=== PATIENT | male | born 1940 | race Caucasian/White ===

== ENCOUNTER 2022-11-05 10:16 | Observation (INO) | payer BC, MEDICARE ==
[2022-11-05] MEDS ORDERED: SODIUM CHLORIDE 0.9% 1,000 ML IV STA (11:22)
[2022-11-05 11:50] LABS: Basophils # (A) 0.1 k/uL (0-0.2); Basophils % (A) 1 %; Eosinophils % (A) 0 %; HGB 15.1 gm/dL (13.0-17.5); Lymphocytes # (A) 0.9 k/uL (1.0-4.8); Lymphocytes % (A) 8 %; MCH 32.8 pg (25.0-35.0); MCHC 33.4 g/dL (31.0-37.0); MCV 98.1 fL (80.0-100.0); Mean Platelet Volume 8.9; Monocytes # (A) 0.7 k/uL (0-1.0); Monocytes % (A) 6 %; Neutrophils # (A) 9.7 k/uL (1.3-7.7); Neutrophils % (A) 83 %; Platelet Count 160 k/uL (150-450); RBC 4.59 m/uL (4.30-5.90); RDW 14.5 % (11.5-15.5); WBC 11.7 k/uL (3.8-10.6)
--- NOTE | 2022-11-05 12:02 | XR ---
EXAMINATION TYPE: XR shoulder complete LT DATE OF EXAM: 11/05/2022 CLINICAL HISTORY: pain COMPARISON: NONE TECHNIQUE: Three views of the left shoulder are obtained. FINDINGS: Partially impacted partially displaced fracture left humeral surgical neck. Glenohumeral eric int is intact as is the AC joint. Mild AC joint arthropathy. IMPRESSION: 1. Fracture as described left humeral surgical neck.
[2022-11-05 12:12] LABS: ALT 18 U/L (4-49); AST 21 U/L (17-59); African American GFR (CKD) >90 (>60 ml/min/1.73 sqM); Albumin 4.3 g/dL (3.5-5.0); Alkaline Phosphatase 65 U/L (38-126); Anion Gap 6 mmol/L; Blood Urea Nitrogen 17 mg/dL (9-20); Calcium 11.2 mg/dL (8.4-10.2); Carbon Dioxide 25 mmol/L (22-30); Chloride 105 mmol/L (98-107); Glucose 104 mg/dL (74-99); Magnesium 1.6 mg/dL (1.6-2.3); Non-African American GFR(CKD) 83 (>60 ml/min/1.73 sqM); Phosphorus 2.2 mg/dL (2.5-4.5); Potassium 4.7 mmol/L (3.5-5.1); Sodium 136 mmol/L (137-145); Total Bilirubin 2.9 mg/dL (0.2-1.3); Total Protein 6.9 g/dL (6.3-8.2)
--- NOTE | 2022-11-05 12:12 | XR ---
EXAMINATION TYPE: XR chest 1V DATE OF EXAM: 11/05/2022 COMPARISON: None INDICATION: Fall, pain TECHNIQUE: Single frontal view of the chest is obtained. FINDINGS: The heart size is normal. The pulmonary vasculature is normal. The lungs are clear. No pneumothorax is evident. There is a fracture at the surgical neck of the left humerus. IMPRESSION: 1. No acute pulmonary process. 2. Fracture of the left humeral neck.
--- NOTE | 2022-11-05 12:27 | ED ---
Fall HPI - General Chief Complaint: Fall Stated Complaint: fall, lt arm pain Time Seen by Provider: 11/05/22 11:14 Source: patient, EMS, old records reviewed Mode of arrival: EMS Limitations: no limitations - History of Present Illness Initial Comments: This is a 82-year-old male presents emergency from chief complaint of a fall. Patient states that he loss his balance falling yesterday. Patient states he fell last night and crawled to the couch. Patient is still complaining of shoulder pain which family called EMS. Family states the patient does not really got to his primary care physician is concerned about his overall health. Patient himself has no other specific complaints. Family states that is very weak, states that he cannot get up and walk by himself. He denies any head injury no loss conscious. Denies chest pain no palpitations. - Related Data Home Medications Medication Instructions Recorded Confirmed No Known Home Medications 11/05/22 11/05/22 Allergies Allergy/AdvReac Type Severity Reaction Status Date / Time No Known Allergies Allergy Verified 11/05/22 13:22 Review of Systems ROS Statement: Those systems with pertinent positive or pertinent negative responses have been documented in the HPI. ROS Other: All systems not noted in ROS Statement are negative. Past Medical History Past Medical History: Dementia History of Any Multi-Drug Resistant Organisms: None Reported Past Surgical History: No Surgical Hx Reported Past Psychological History: No Psychological Hx Reported Smoking Status: Current every day smoker Past Alcohol Use History: Occasional Past Drug Use History: None Reported General Exam Limitations: no limitations General appearance: alert, in no apparent distress Head exam: Present: atraumatic, normocephalic, normal inspection Eye exam: Present: normal appearance, PERRL, EOMI. Absent: scleral icterus, conjunctival injection, periorbital swelling ENT exam: Present: normal exam, normal oropharynx, mucous membranes moist Neck exam: Present: normal inspection, full ROM. Absent: tenderness, menin gismus, lymphadenopathy Respiratory exam: Present: normal lung sounds bilaterally. Absent: respiratory distress, wheezes, rales, rhonchi, stridor Cardiovascular Exam: Present: regular rate, normal rhythm, normal heart sounds. Absent: systolic murmur, diastolic murmur, rubs, gallop, clicks Extremities exam: Present: other (Left shoulder there is obvious deformity, swelling noted, tenderness with limited range of motion neurovascular intact) Neurological exam: Present: alert, oriented X3, reflexes normal. Absent: motor sensory deficit Skin exam: Present: warm, dry, intact, normal color. Absent: rash Course Vital Signs 11/05/22 11/05/22 10:17 12:36 Temperature 98.4 F Pulse Rate 81 Pulse Rate [ 64 Aircraft Sales Representative ] Respiratory 18 18 Rate Blood Pressure 173/94 Blood Pressure 183/92 [Right Arm Supine] O2 Sat by Pulse 93 L 95 Oximetry Medical Decision Making - Medical Decision Making Was pt. sent in by a medical professional or institution (MATT Conway, [facility]LE [facility], urgent care, hospital, or [facility]...) When possible be specific @ -No Did you speak to anyone other than the patient for history (EMS, parent, family, police, friend...)? What history was obtained from this source @ -EMS and family Did you review nursing and triage notes (agree or disagree)? Why? @ -I reviewed and agree with nursing and triage notes Were old charts reviewed (outside hosp., previous admission, EMS record, old EKG, old radiological studies, urgent care reports/EKG's, [facility] records)? Report findings @ -No old charts were reviewed Differential Diagnosis (chest pain, altered mental status, abdominal pain women, abdominal pain men, vaginal bleeding, weakness, fever, dyspnea, syncope, headache, dizziness, GI bleed, back pain, seizure, CVA, palpatations, mental health, musculoskeletal)? @ -Fall, weakness, dehydration, malnutrition, humeral fracture, EKG interpreted by me (3pts min.). @ -EKG performed at 11:34 sinus bradycardia with a rate of 59 [place] 192 QRS 85 QT/QTC 377/377 X-rays interpreted by me (1pt min.). @ -None done CT interpreted by me (1pt min.). @ -None done U/S interpreted by me (1pt. min.). @ -None done What testing was considered but not performed or refused? (CT, X-rays, U/S, labs)? Why? @ -None What meds were considered but not given or refused? Why? @ -None Did you discuss the management of the patient with other professionals (professionals i.e. MATT Conway, BOTTLE WASHER, lab, RT, psych nurse, social human services assistants, manufacturing controls engineer, teacher, chief supply chain officer, keycase assembler)? Give summary @ -Orthopedics accepted admission for trauma care, consult to medicine, physical therapy and possible rehab Was smoking cessation discussed for >3mins.? @ -No Was critical care preformed (if so, how long)? @ -No Were there social determinants of health that impacted care today? How? (Homelessness, low income, unemployed, alcoholism, drug addiction, transportation, low edu. Level, literacy, decrease access to med. care, prison, rehab)? @ -No Was there de-escalation of care discussed even if they declined (Discuss DNR or withdrawal of care, Hospice)? DNR status @ -No What co-morbidities impacted this encounter? (DM, HTN, Smoking, COPD, CAD, Cancer, CVA, ARF, Chemo, Hep., AIDS, mental health diagnosis, sleep apnea, morbid obesity)? @ -None Was patient admitted / discharged? Hospital course, mention meds given and route, prescriptions, significant lab abnormalities, going to OR and other pertinent info. @ -Admitted patient has left humerus fracture with ongoing weakness, malnutrition. Patient was admitted to trauma services Dr. Stapleton with consult to medicine Undiagnosed new problem with uncertain prognosis? @ -No Drug Therapy requiring intensive monitoring for toxicity (Heparin, Nitro, Insulin, Cardizem)? @ -No Were any procedures done? @ -No Diagnosis/symptom? @ - humerus fracture Acute, or Chronic, or Acute on Chronic? @ -Acute Uncomplicated (without systemic symptoms) or Complicated (systemic symptoms)? @ -Uncomplicated Side effects of treatment? @ -No Exacerbation, Progression, or Severe Exacerbation? @ -No Poses a threat to life or bodily function? How? (Chest pain, USA, NC, pneumonia, PE, COPD, DKA, ARF, appy, cholecystitis, CVA, Diverticulitis, Homicidal, Suicidal, threat to staff... and all critical care pts) @ -No - Lab Data Result diagrams: 11/05/22 11:34 11/05/22 11:34 Lab Results 11/05/22 11/05/22 11/05/22 Range/Units 11:34 11:34 13:00 WBC 11.7 H (3.8-10.6) k/uL RBC 4.59 (4.30-5.90) m/uL Hgb 15.1 (13.0-17.5) gm/dL Hct 45.0 (39.0-53.0) % MCV 98.1 (80.0-100.0) fL MCH 32.8 (25.0-35.0) pg MCHC 33.4 (31.0-37.0) g/dL RDW 14.5 (11.5-15.5) % Plt Count 160 (150-450) k/uL MPV 8.9 Neutrophils % 83 % Lymphocytes % 8 % Monocytes % 6 % Eosinophils % 0 % Basophils % 1 % Neutrophils # 9.7 H (1.3-7.7) k/uL Lymphocytes # 0.9 L (1.0-4.8) k/uL Monocytes # 0.7 (0-1.0) k/uL Eosinophils # 0.0 (0-0.7) k/uL Basophils # 0.1 (0-0.2) k/uL Sodium 136 L (137-145) mmol/L Potassium 4.7 (3.5-5.1) mmol/L Chloride 105 (98-107) mmol/L Carbon Dioxide 25 (22-30) mmol/L Anion Gap 6 mmol/L BUN 17 (9-20) mg/dL Creatinine 0.81 (0.66-1.25) mg/dL Est GFR (CKD-EPI)AfAm >90 (>60 ml/min/1.73 sqM) Est GFR (CKD-EPI)NonAf 83 (>60 ml/min/1.73 sqM) Glucose 104 H (74-99) mg/dL Calcium 11.2 H (8.4-10.2) mg/dL Phosphorus 2.2 L (2.5-4.5) mg/dL Magnesium 1.6 (1.6-2.3) mg/dL Total Bilirubin 2.9 H (0.2-1.3) mg/dL AST 21 (17-59) U/L ALT 18 (4-49) U/L Alkaline Phosphatase 65 (38-126) U/L Total Protein 6.9 (6.3-8.2) g/dL Albumin 4.3 (3.5-5.0) g/dL Urine Color Yellow Urine Appearance Cloudy (Clear) Urine pH 8.0 (5.0-8.0) Ur Specific [place] 1.014 (1.001-1.035) Urine Protein Negative (Negative) Urine Glucose (UA) Negative (Negative) Urine Ketones Negative (Negative) Urine Blood Negative (Negative) Urine Nitrite Negative (Negative) Urine Bilirubin Negative (Negative) Urine Urobilinogen 2.0 (<2.0) mg/dL Ur Leukocyte Esterase Negative (Negative) Urine RBC 2 (0-5) /hpf Amorphous Sediment Moderate H (None) /hpf - EKG Data -: EKG Interpreted by Me EKG Comments: EKG performed at 11:34 sinus bradycardia rate of 59 [place] 192 QRS 85 QT/QTC 377/377 Disposition Clinical Impression: Fall, Weakness, Unable to ambulate, Fracture of neck of left humerus Disposition: ADMITTED IP TO THIS HOSP Condition: Fair Referrals: Odell Zee MD [Primary Care Provider] - 1-2 days Time of Disposition: 14:08
[2022-11-05 13:31] LABS: Amorphous Sediment,Urine Moderate /hpf; Appearance,Urine Cloudy (Clear); Bilirubin,Urine Negative (Negative); Blood,Urine Negative (Negative); Color,Urine Yellow; Glucose,Urine (UA) Negative (Negative); Ketones,Urine Negative (Negative); Leukocyte Esterase,Urine Negative (Negative); Nitrite,Urine Negative (Negative); Protein,Urine Negative (Negative); RBC,Urine 2 /hpf (0-5); Specific Gravity,Urine 1.014 (1.001-1.035)
[2022-11-05] MEDS ORDERED: ONDANSETRON 4 MG/2 ML VIAL IVP PRN (14:08)
[2022-11-05] MEDS ORDERED: ACETAMINOPHEN TAB 325 MG TAB PO PRN (14:08)
[2022-11-05] MEDS ORDERED: NALOXONE 0.4 MG/ML 1 ML VIAL IV PRN (14:08)
[2022-11-05] MEDS ORDERED: IBUPROFEN 400 MG TAB PO PRN (14:08)
[2022-11-05] MEDS ORDERED: SENNOSIDES 8.6 MG TAB PO PRN (15:11)
--- NOTE | 2022-11-05 15:11 | P.HPOR ---
History of Present Illness H&P Date: 11/05/22 Chief Complaint: left shoulder pain patient is an 82-year-old male who presents to the emergency department status post fall at home. Patient states he fell last night, however, friends/family that was present during her says he fell about 2 days ago when he is at home. Patient states he was locking a door when he fell to the ground landing on his left shoulder. patient denies feeling dizzy/tripping over anything before the fall. Patient denies loss of consciousness/hitting his head. patient says he does have a cane at home, but does not use it to ambulate. Patient's family member says that patient is very weak. Patient states she has had both hip replaced in the past. Patient denies any other orthopedic surgeries. Patient states mostly the pain is in the left shoulder and there is some radiation of pain down the left elbow. Patient denies any numbness/tingling. Swelling is present to the left upper extremity with ice over the elbow. Patient says he is not on any blood thinners. Patient denies chest pain, fever, shortness of breath, nausea, vomiting, change in vision, loss of bowel/bladder control Past Medical History Past Medical History: Dementia History of Any Multi-Drug Resistant Organisms: None Reported Past Surgical History: No Surgical Hx Reported Past Psychological History: No Psychological Hx Reported Smoking Status: Current every day smoker Past Alcohol Use History: Occasional Past Drug Use History: None Reported Medications and Allergies Home Medications Medication Instructions Recorded Confirmed Type No Known Home Medications 11/05/22 11/05/22 History Allergies Allergy/AdvReac Type Severity Reaction Status Date / Time No Known Allergies Allergy Verified 11/05/22 13:22 Physical Examination inspection: Sling present to left upper extremity. Ecchymosis present in the left upper extremity from proximal humerus extending distally to the elbow. Negative for any open fractures, significant ulcers/lesions. Sensation: Sensation is equal, symmetric, by intact throughout the upper and lower extremities Palpation: severe TTP over proximal left humerus. moderate TTP over mid shaft humerus. NTTP throughout rest of exam. range of motion: Patient is unable to move left shoulder secondary to injury/pain. Patient does have similar range of motion left elbow secondary to referred pain from the shoulder. Patient has full range of motion in left wrist and flexion/extension and digits of left hand. Patient has full range of motion throughout right upper extremity and in bilateral lower extremities Motor: 4+/5 in all major motor some bilateral lower extremities and right upper extremity. 4+/5 in resisted left wrist flexion/extension. 4/5 in reisted left elbow flex/ext. Neurovascular status: Radial pulses intact, 2+ bilaterally. Cap refill under 3 seconds in digits of upper extremities. DP pulse intact bilaterally. Special tests: Negative Homans. Negative log roll maneuver bilaterally. Results - Labs Labs: Abnormal Lab Results - Last 24 Hours (Table) 11/05/22 11/05/22 11/05/22 Range/Units 11:34 11:34 13:00 WBC 11.7 H (3.8-10.6) k/uL Neutrophils # 9.7 H (1.3-7.7) k/uL Lymphocytes # 0.9 L (1.0-4.8) k/uL Sodium 136 L (137-145) mmol/L Glucose 104 H (74-99) mg/dL Calcium 11.2 H (8.4-10.2) mg/dL Phosphorus 2.2 L (2.5-4.5) mg/dL Total Bilirubin 2.9 H (0.2-1.3) mg/dL Amorphous Sediment Moderate H (None) /hpf H & H 11/05/22 Range/Units 11:34 Hgb 15.1 (13.0-17.5) gm/dL Hct 45.0 (39.0-53.0) % Result Diagrams: 11/05/22 11:34 11/05/22 11:34 Assessment and Plan Assessment: 1. left proximal humerus fracture status post fall Plan: 1. left proximal humerus fracture - patient seen at bedside this afternoon in ER. X-ray left shoulder does demonstrate proximal humerus fracture with impaction and minimal displacement. Patien has sling to LUE currently. At this time we are not recommending any emergent/urgent orthopedic surgical intervention. Patient is to continue LUE in sling. Encouraged to perform ROM exercises of left wrist/elbow. NWB LUE. We will treat with conservative measures at this time we [id number] pain medicatioith use of sling and tylenol/ibuprofen for pain. we will continue to follow patient during his stay in hospital. 2. Appreciate medical management 3. Pain management - Tylenol; ibuprofen; norco 4. DVT ppx recs 5. GI ppx - senna 6. PT/OT NWB LUE; maintain in sling; BLE WBAT with walker and assistance 7. Encourage incentive spirometer use Time with Patient: Less than 30
[2022-11-05] MEDS: SODIUM CHLORIDE 0.9% 1,000 ML IV SCH (16:59)
[2022-11-05] MEDS: HYDROcodone/APAP 5-325MG 1 EACH TAB PO PRN (16:59)
--- NOTE | 2022-11-05 17:38 | P.CONS ---
History of Present Illness - Reason for Consult Consult date: 11/05/22 - Chief Complaint Medical management - History of Present Illness 82-year-old with a medical history of dementia presented after mechanical fall resulting in left humeral fracture. Medicine consulted by with [facility] for medical management. Patient has no complaint at this time and says his pain is well-controlled. He denies any medical issues or conditions. Does not take any prescription medications at home, nor does he take any [id number]-[id number] medications. He reportedly has dementia, but appears to be of sound mind during my evaluation, with no medication for dementia. He denies fevers, chills, nausea, vomiting, chest pain, palpitations, syncopal, presyncope, cough, dyspnea, abdominal pain, constipation, diarrhea, dysuria, numbness/weakness of extremities. By my evaluation, patient is afebrile, 160/70, heart rate 85, 97% on room air. CBC shows mild leukocytosis to 11.7, otherwise unremarkable. Chemistries show hyponatremia to 136, glucose 104, calcium of 11.2, phosphorus of 2.2. Magnesium is 1.6. Liver function test showed total bilirubin of 2.9, AST of 21, ALT of 18. UA is unremarkable. Shoulder x-ray shows fracture of the left shoulder, partially displaced humeral surgical neck fracture. Chest x-ray shows hyperinflation with flattening of diaphragms, otherwise is clear bilaterally. EKG shows sinus bradycardia with left axis deviation, no signs of ischemia. All Systems reviewed and pertinent positives and negatives noted in HPI, all other symptoms are negative Gen: in no apparent distress, resting comfortably in bed Eyes: PERRL, no scleral injection or icterus HENT: normocephalic, atraumatic, good hearing acuity, moist mucous membranes Neck: no tracheal deviation, full range of motion Resp: good air exchange, breathing comfortably with no accessory muscle use, no tactile fremitus, clear to auscultation bilaterally CVS: good distal perfusion x 4, no pitting edema, regular rate and rhythm without murmurs GI: soft, NTTP, ND, no hepatosplenomegaly : no suprapubic tenderness, no CVAT, spaulding catheter not present MSK: no clubbing, no cyanosis, no noted contractures of extremities Skin: no noted rashes, petechiae; temperature of skin is appropriate Neuro: moving all extremities without signs of weakness, CN II-XII intact Psych: cooperative, euthymic mood, insight and judgment intact Labs and imaging as above Assessment: Hypercalcemia Leukocytosis Hypertension, stage II Dementia Left humeral neck fracture Plan: Vital signs reviewed and noted in the [facility] CBC, chemistries, liver function tests, phosphorus, magnesium, UA reviewed and noted in the [facility] Chest x-ray was independently interpreted by myself, findings noted in the [facility] Shoulder x-ray report reviewed and noted in [facility] Orthopedic surgery note reviewed, patient will be managed conservatively/nonoperatively, PT/OT with nonweightbearing status to left upper extremity IV fluids with normal saline at 75 mL per hour, repeat basic metabolic panel and CBC tomorrow to ensure resolution of leukocytosis as well as hypercalcemia Agree with Zofran 4 mg every 8 hours when necessary for nausea Agree with ibuprofen 400 mg by mouth every 6 hours when necessary Agree with [place] 5/325 every 4 hours when necessary Change Senokot to daily scheduled instead of when necessary Patient is full code DVT prophylaxis deferred to primary team, recommend early ambulation as opposed to chemical DVT prophylaxis Past Medical History Past Medical History: Dementia History of Any Multi-Drug Resistant Organisms: None Reported Past Surgical History: Orthopedic Surgery Additional Past Surgical History / Comment(s): bilateral hip surgery Past Psychological History: No Psychological Hx Reported Smoking Status: Current every day smoker Past Alcohol Use History: Occasional Past Drug Use History: None Reported Medications and Allergies Home Medications Medication Instructions Recorded Confirmed Type No Known Home Medications 11/05/22 11/05/22 History Allergies Allergy/AdvReac Type Severity Reaction Status Date / Time No Known Allergies Allergy Verified 11/05/22 13:22 Physical Exam Osteopathic Statement: *. No significant issues noted on an osteopathic structural exam other than those noted in the History and Physical/Consult. Vitals: Vital Signs Temp Pulse Pulse Pulse Resp BP BP 11/05/22 16:41 97.5 F L 65 20 11/05/22 12:36 64 18 183/92 11/05/22 10:17 98.4 F 81 18 173/94 BP Pulse Ox 11/05/22 16:41 160/70 97 11/05/22 12:36 95 11/05/22 10:17 93 L Intake and Output 11/05/22 11/05/22 11/05/22 06:59 14:59 22:59 Other: Weight 58.967 kg 58.967 kg Results CBC & Chem 7: 11/05/22 11:34 11/05/22 11:34 Labs: Abnormal Lab Results - Last 24 Hours (Table) 11/05/22 11/05/22 11/05/22 Range/Units 11:34 11:34 13:00 WBC 11.7 H (3.8-10.6) k/uL Neutrophils # 9.7 H (1.3-7.7) k/uL Lymphocytes # 0.9 L (1.0-4.8) k/uL Sodium 136 L (137-145) mmol/L Glucose 104 H (74-99) mg/dL Calcium 11.2 H (8.4-10.2) mg/dL Phosphorus 2.2 L (2.5-4.5) mg/dL Total Bilirubin 2.9 H (0.2-1.3) mg/dL Amorphous Sediment Moderate H (None) /hpf
[2022-11-06] MEDS: HYDROcodone/APAP 5-325MG 1 EACH TAB PO PRN ×3 (01:49→19:48)
[2022-11-06] MEDS: SODIUM CHLORIDE 0.9% 1,000 ML IV SCH ×2 (04:27→14:00)
[2022-11-06] MEDS: SENNOSIDES 8.6 MG TAB PO SCH (08:09)
[2022-11-06] MEDS: amLODIPine 10 MG TAB PO SCH (08:09)
--- NOTE | 2022-11-06 09:25 | P.PN ---
Subjective Progress Note Date: 11/06/22 Principal diagnosis: Left proximal humerus fracture Patient was seen at bedside this morning lying semirecumbent position with sling to left upper extremity. There is still bruising present to the left upper extremity at the proximal humerus. Patient seems somewhat groggy/fatigue during encounter. Patient says he is tired. Patient denies any new locations of pain. He says he is still having pain in the left shoulder. Patient denies chest pain, fever, shortness of breath, nausea, vomiting, change in vision, loss of bowel/bladder control. Objective - Vital Signs Vital signs: Vital Signs Temp 98.1 F 11/06/22 01:42 Pulse 75 11/06/22 01:42 Resp 16 11/06/22 01:42 BP 168/74 11/06/22 01:42 Pulse Ox 96 11/06/22 01:42 FiO2 Intake & Output 11/05/22 11/06/22 11/06/22 18:59 06:59 18:59 Weight 58.967 kg Other: Voiding Method Diaper Incontinent # Voids 4 - Exam inspection: Sling present to left upper extremity. Ecchymosis present in the left upper extremity from proximal humerus extending distally to the elbow. Negative for any open fractures, significant ulcers/lesions. Sensation: Sensation is equal, symmetric, by intact throughout the upper and lower extremities Palpation: severe TTP over proximal left humerus. moderate TTP over mid shaft humerus. NTTP throughout rest of exam. range of motion: Patient is unable to move left shoulder secondary to injury/pain. Patient does have similar range of motion left elbow secondary to referred pain from the shoulder. Patient has full range of motion in left wrist and flexion/extension and digits of left hand. Patient has full range of motion throughout right upper extremity and in bilateral lower extremities Motor: 4+/5 in all major motor some bilateral lower extremities and right upper extremity. 4+/5 in resisted left wrist flexion/extension. 4/5 in reisted left elbow flex/ext. Neurovascular status: Radial pulses intact, 2+ bilaterally. Cap refill under 3 seconds in digits of upper extremities. DP pulse intact bilaterally. Special tests: Negative Homans. Negative log roll maneuver bilaterally. - Labs CBC & Chem 7: 11/05/22 11:34 11/05/22 11:34 Labs: Abnormal Lab Results - Last 24 Hours (Table) 11/05/22 11/05/22 11/05/22 Range/Units 11:34 11:34 13:00 WBC 11.7 H (3.8-10.6) k/uL Neutrophils # 9.7 H (1.3-7.7) k/uL Lymphocytes # 0.9 L (1.0-4.8) k/uL Sodium 136 L (137-145) mmol/L Glucose 104 H (74-99) mg/dL Calcium 11.2 H (8.4-10.2) mg/dL Phosphorus 2.2 L (2.5-4.5) mg/dL Total Bilirubin 2.9 H (0.2-1.3) mg/dL Amorphous Sediment Moderate H (None) /hpf Assessment and Plan Assessment: 1. left proximal humerus fracture status post fall Plan: 1. left proximal humerus fracture - patient seen at bedside this afternoon in ER. X-ray left shoulder does demonstrate proximal humerus fracture with impaction and minimal displacement. New sling placed on LUE. At this time we are not recommending any emergent/urgent orthopedic surgical intervention. Patient is to continue LUE in sling. Encouraged to perform ROM exercises of left wrist/elbow. NWB LUE. We will treat with conservative measures at this time we [id number] pain medication, use of sling and tylenol/ibuprofen for pain. we will continue to follow patient during his stay in hospital. 2. Appreciate medical management 3. Pain management - Tylenol; ibuprofen; norco 4. DVT ppx recs 5. GI ppx - senna 6. PT/OT NWB LUE; maintain in sling; BLE WBAT with walker and assistance 7. Encourage incentive spirometer use Time with Patient: Less than 30
--- NOTE | 2022-11-06 09:59 | P.PN ---
Subjective Progress Note Date: 11/06/22 Patient has any complaints today. Resting in bed comfortably. Gen: awake, alert HEENT: normocephalic, atraumatic, good hearing acuity, moist mucous membranes Resp: good air exchange, breathing comfortably with no accessory muscle use CVS: good distal perfusion x 4, GI: soft, NTTP, ND : no SPT, no CVAT, spaulding catheter not present MSK: no pitting edema, no clubbing, left upper extremity in a sling Neuro: non-focal, moving all extremities Psych: cooperative, euthymic mood Hospital course: 82-year-old with a medical history of dementia presented after mechanical fall resulting in left humeral fracture. Medicine consulted by with [facility] for medical management. By my evaluation, patient is afebrile, 160/70, heart rate 85, 97% on room air. CBC shows mild leukocytosis to 11.7, otherwise unremarkable. Chemistries show hyponatremia to 136, glucose 104, calcium of 11.2, phosphorus of 2.2. Magnesium is 1.6. Liver function test showed total bilirubin of 2.9, AST of 21, ALT of 18. UA is unremarkable. Shoulder x-ray shows fracture of the left shoulder, partially displaced humeral surgical neck fracture. Chest x-ray shows hyperinflation with flattening of diaphragms, otherwise is clear bilaterally. EKG shows sinus bradycardia with left axis paula ation, no signs of ischemia. Assessment: Hypercalcemia Leukocytosis Hypertension, stage II Dementia Left humeral neck fracture Plan: Patient is afebrile today, 160/74, heart rate 75, 96% on room air Orthopedic surgery note reviewed from 11/06, patient will be managed conservatively/nonoperatively, PT/OT with nonweightbearing status to left upper extremity IV fluids with normal saline at 75 mL per hour, repeat basic metabolic panel and CBC tomorrow to ensure resolution of leukocytosis as well as hypercalcemia is pending Added amlodipine 10 mg daily for elevated blood pressure Agree with Zofran 4 mg every 8 hours when necessary for nausea Agree with ibuprofen 400 mg by mouth every 6 hours when necessary Agree with [place]year 5/325 every 4 hours when necessary Change Senokot to daily scheduled instead of when necessary Patient is full code DVT prophylaxis deferred to primary team, recommend early ambulation as opposed to chemical DVT prophylaxis Objective - Vital Signs Vital signs: Vital Signs Temp 98.1 F 11/06/22 01:42 Pulse 75 11/06/22 01:42 Resp 16 11/06/22 01:42 BP 168/74 11/06/22 01:42 Pulse Ox 97 11/06/22 08:45 FiO2 Intake & Output 11/05/22 11/06/22 11/06/22 18:59 06:59 18:59 Weight 58.967 kg Other: Voiding Method Diaper Diaper Incontinent Incontinent # Voids 4 - Labs CBC & Chem 7: 11/05/22 11:34 11/05/22 11:34 Labs: Abnormal Lab Results - Last 24 Hours (Table) 11/05/22 11/05/22 11/05/22 Range/Units 11:34 11:34 13:00 WBC 11.7 H (3.8-10.6) k/uL Neutrophils # 9.7 H (1.3-7.7) k/uL Lymphocytes # 0.9 L (1.0-4.8) k/uL Sodium 136 L (137-145) mmol/L Glucose 104 H (74-99) mg/dL Calcium 11.2 H (8.4-10.2) mg/dL Phosphorus 2.2 L (2.5-4.5) mg/dL Total Bilirubin 2.9 H (0.2-1.3) mg/dL Amorphous Sediment Moderate H (None) /hpf
[2022-11-06 11:56] LABS: Basophils # (A) 0.06 X 10*3/uL (0.00-0.10); Basophils % (A) 0.5 %; Eosinophils # (A) 0.03 X 10*3/uL (0.04-0.35); Eosinophils % (A) 0.2 %; HCT 42.6 % (39.6-50.0); HGB 13.8 g/dL (13.0-17.0); Immature Grans, Automated 0.3 %; Lymphocytes # (A) 1.66 X 10*3/uL (0.90-5.00); Lymphocytes % (A) 13.6 %; MCH 31.8 pg (27.0-32.0); MCHC 32.4 g/dL (32.0-37.0); MCV 98.2 fL (80.0-97.0); Mean Platelet Volume 11.2 fL (9.5-12.2); Monocytes # (A) 1.28 X 10*3/uL (0.20-1.00); Monocytes % (A) 10.5 %; NRBC Per 100 WBC 0 /100 WBCS (0.0-0.0); Neutrophils # (A) 9.15 X 10*3/uL (1.80-7.70); Neutrophils % (A) 74.9 %; Platelet Count 157 X 10*3/uL (140-440); RBC 4.34 X 10*6/uL (4.40-5.60); RDW 14.2 % (11.5-14.5); WBC 12.22 X 10*3/uL (4.50-10.00)
[2022-11-06 14:25] LABS: Magnesium 1.4 mg/dL (1.5-2.4)
[2022-11-06 14:26] LABS: African American GFR (CKD) 94.9 (60.0-200.0); Anion Gap 8.6 mmol/L (10.00-18.00); BUN/Creat Ratio 17.14 Ratio (12.00-20.00); Blood Urea Nitrogen 14.5 mg/dL (9.0-27.0); Calcium 10.7 mg/dL (8.7-10.3); Carbon Dioxide 21.7 mmol/L (20.0-27.5); Non-African American GFR(CKD) 81.9 (60.0-200.0); Potassium 4.5 mmol/L (3.5-5.5)
[2022-11-06] MEDS ORDERED: QUEtiapine 25 MG TAB PO STA (21:40)
[2022-11-07] MEDS ORDERED: cloNIDine HCL 0.2 MG TAB PO PRN (02:05)
[2022-11-07] MEDS: SODIUM CHLORIDE 0.9% 1,000 ML IV SCH (03:10)
[2022-11-07] MEDS: amLODIPine 10 MG TAB PO SCH (08:54)
[2022-11-07] MEDS: SENNOSIDES 8.6 MG TAB PO SCH (08:54)
--- NOTE | 2022-11-07 10:24 | P.PN ---
Subjective Progress Note Date: 11/07/22 Patient has no new complaints today. Resting in bed comfortably. Medically stable for discharge Gen: awake, alert HEENT: normocephalic, atraumatic, good hearing acuity, moist mucous membranes Resp: good air exchange, breathing comfortably with no accessory muscle use CVS: good distal perfusion x 4, GI: soft, NTTP, ND : no SPT, no CVAT, spaulding catheter not present MSK: no pitting edema, no clubbing, left upper extremity in a sling Neuro: non-focal, moving all extremities Psych: cooperative, euthymic mood Hospital course: 82-year-old with a medical history of dementia presented after mechanical fall resulting in left humeral fracture. Medicine consulted by with [facility] for medical management. By my evaluation, patient is afebrile, 160/70, heart rate 85, 97% on room air. CBC shows mild leukocytosis to 11.7, otherwise unremarkable. Chemistries show hyponatremia to 136, glucose 104, calcium of 11.2, phosphorus of 2.2. Magnesium is 1.6. Liver function test showed total bilirubin of 2.9, AST of 21, ALT of 18. UA is unremarkable. Shoulder x-ray shows fracture of the left shoulder, partially displaced humeral surgical neck fracture. Chest x-ray shows hyperinflation with flattening of diaphragms, otherwise is clear bilaterally. EKG shows sinus bradycardia with left axis deviation, no signs of ischemia. Assessment: Hypercalcemia Leukocytosis Hypertension, stage II Dementia Left humeral neck fracture Plan: Patient is afebrile today, 103/59, 98% on room air Discussed the case with orthopedic surgery, patient is medically stable for discharge, will require BMP follow-up in one week for calcium Hypercalcemia has improved Prescribed amlodipine 10 mg daily and clonidine 0.2 mg 3 times a day when necessary for elevated blood pressure Remainder of the medication reconciliation deferred to orthopedic surgery today Patient is medically cleared for discharge Patient is full code DVT prophylaxis deferred to primary team, recommend early ambulation as opposed to chemical DVT prophylaxis Objective - Vital Signs Vital signs: Vital Signs Temp 98.6 F 11/07/22 03:01 Pulse 88 11/07/22 02:00 Resp 13 11/06/22 20:20 BP 103/59 11/07/22 05:30 Pulse Ox 98 11/07/22 08:25 FiO2 Intake & Output 11/06/22 11/07/22 11/07/22 18:59 06:59 18:59 Intake Total 500 Output Total 900 Balance -900 500 Intake: Oral 500 Output: Urine 900 Other: Voiding Method Diaper Diaper Incontinent Incontinent # Voids 1 3 # Bowel Movements 1 - Labs CBC & Chem 7: 11/06/22 04:05 11/06/22 04:05 Labs: Abnormal Lab Results - Last 24 Hours (Table) 11/06/22 11/06/22 Range/Units 04:05 04:05 WBC 12.22 H (4.50-10.00) X 10*3/uL RBC 4.34 L (4.40-5.60) X 10*6/uL MCV 98.2 H (80.0-97.0) fL Neutrophils # 9.15 H (1.80-7.70) X 10*3/uL Monocytes # 1.28 H (0.20-1.00) X 10*3/uL Eosinophils # 0.03 L (0.04-0.35) X 10*3/uL Anion Gap 8.60 L (10.00-18.00) mmol/L Calcium 10.7 H (8.7-10.3) mg/dL Magnesium 1.4 L (1.5-2.4) mg/dL
--- NOTE | 2022-11-07 11:04 | P.PN ---
Subjective Progress Note Date: 11/07/22 Principal diagnosis: Left proximal humerus fracture Patient was seen at bedside this morning lying semirecumbent position without sling to left upper extremity. Patient says he does not want to wwear sling anymore. There is still bruising present to the left upper extremity at the proximal humerus. Patient seems somewhat groggy/fatigue during encounter. Patient says he is tired. Patient denies any new locations of pain. Patient denies chest pain, fever, shortness of breath, nausea, vomiting, change in vision, loss of bowel/bladder control. Objective - Vital Signs Vital signs: Vital Signs Temp 98.6 F 11/07/22 03:01 Pulse 88 11/07/22 02:00 Resp 13 11/06/22 20:20 BP 103/59 11/07/22 05:30 Pulse Ox 98 11/07/22 02:00 FiO2 Intake & Output 11/06/22 11/07/22 11/07/22 18:59 06:59 18:59 Intake Total 500 Output Total 900 Balance -900 500 Intake: Oral 500 Output: Urine 900 Other: Voiding Method Diaper Diaper Incontinent Incontinent # Voids 1 3 # Bowel Movements 1 - Exam inspection: Sling not present to left upper extremity. Ecchymosis present in the left upper extremity from proximal humerus extending distally to the elbow. Negative for any open fractures, significant ulcers/lesions. Sensation: Sensation is equal, symmetric, by intact throughout the upper and lower extremities Palpation: severe TTP over proximal left humerus. moderate TTP over mid shaft humerus. NTTP throughout rest of exam. range of motion: Patient is unable to move left shoulder secondary to i njury/pain. Patient does have similar range of motion left elbow secondary to referred pain from the shoulder. Patient has full range of motion in left wrist and flexion/extension and digits of left hand. Patient has full range of motion throughout right upper extremity and in bilateral lower extremities Motor: 4+/5 in all major motor some bilateral lower extremities and right upper extremity. 4+/5 in resisted left wrist flexion/extension. 4/5 in reisted left elbow flex/ext. Neurovascular status: Radial pulses intact, 2+ bilaterally. Cap refill under 3 seconds in digits of upper extremities. DP pulse intact bilaterally. Special tests: Negative Homans. Negative log roll maneuver bilaterally. - Labs CBC & Chem 7: 11/06/22 04:05 11/06/22 04:05 Labs: Abnormal Lab Results - Last 24 Hours (Table) 11/06/22 11/06/22 Range/Units 04:05 04:05 WBC 12.22 H (4.50-10.00) X 10*3/uL RBC 4.34 L (4.40-5.60) X 10*6/uL MCV 98.2 H (80.0-97.0) fL Neutrophils # 9.15 H (1.80-7.70) X 10*3/uL Monocytes # 1.28 H (0.20-1.00) X 10*3/uL Eosinophils # 0.03 L (0.04-0.35) X 10*3/uL Anion Gap 8.60 L (10.00-18.00) mmol/L Calcium 10.7 H (8.7-10.3) mg/dL Magnesium 1.4 L (1.5-2.4) mg/dL Assessment and Plan Assessment: 1. left proximal humerus fracture status post fall Plan: 1. left proximal humerus fracture - X-ray left shoulder does demonstrate proximal humerus fracture with impaction and minimal displacement. Patient refuses to wear sling to LUE. At this time we are not recommending any emergent/urgent orthopedic surgical intervention. Patient was advised to use sling due to nature of injury. Encouraged to perform ROM exercises of left wrist/elbow. NWB LUE. We will treat with conservative measures at this time with use of [id number] pain medication, use of sling and tylenol/ibuprofen for pain. Plan for discharge to rehab today 2. Appreciate medical management 3. Pain management - Tylenol; ibuprofen; norco 4. DVT ppx recs 5. GI ppx - senna 6. PT/OT NWB LUE; maintain in sling; BLE WBAT with walker and assistance 7. Encourage incentive spirometer use 8. discharge planning - discharge to rehab today. Time with Patient: Less than 30
--- NOTE | 2022-11-07 11:10 | P.DS ---
Providers Date of admission: 11/06/22 10:22 Expected date of discharge: 11/07/22 Attending physician: Rian Stapleton DO Consults: 11/05/22 14:08 Consult Physician Routine Consulting Provider: Gabi Chahal Consult Reason/Comments: Medical management Do you want consulting provider notified?: Yes Primary care physician: [facility] Course: Date of admission: 10/05/2022 Date of discharge: 10/07/2022 Admission diagnosis: Left proximal humerus fracture Discharge diagnosis: Same Attending physician: DR. Stapleton Surgical procedures: none Brief history: Patient is a 82-year-old male with a history of proximal humerus fracture, left status post fall. At this point we have opted to proceed with conservative treatment via the use of sling to left upper extremity. Hospital course: Details of patient's surgery can be found in operative report. Patient tolerated the procedure well and was subsequently transported to orthopedic floor. Patient's orthopeidc and medical care was provided daily. Patient had daily laboratory tests performed for evaluation of overall blood counts. Patient had daily physical therapy to include strengthening range of motion as well as education with walker ambulation. Patient was noted to have a relatively uneventful postoperative course. Patient reported satisfactory pain control with oral pain medications. Patient showed satisfactory progress with physical therapy. Given patient's otherwise satisfactory course and having met physical therapy goals, plan is to discharge patient to rehab. Discharge condition/disposition: Patient will be discharged to rehab in stable condition. Discharge medications: Instructions are given on resumption of patient's normal daily medications per primary care recommendation, in addition patient will be prescribed tylenol; senna Assessment: Left proximal humerus fracture Procedures: none Patient Condition at Discharge: Fair Plan - Discharge Summary Discharge Rx Participant: No New Discharge Prescriptions: New amLODIPine [Norvasc] 10 mg PO DAILY #30 tab Acetaminophen Tab [Tylenol] 650 mg PO Q6HR PRN tab PRN Reason: Mild Pain Or Fever > 100.5 Sennosides/Docusate Sodium [Senna Plus 8.6-50 mg Softgel] 1 each PO DAILY #20 capsule cloNIDine HCL [Catapres] 0.2 mg PO TID PRN #30 tab PRN Reason: Blood Pressure - High Discharge Medication List Acetaminophen Tab [Tylenol] 650 mg PO Q6HR PRN tab 11/07/22 [Rx] Sennosides/Docusate Sodium [Senna Plus 8.6-50 mg Softgel] 1 each PO DAILY #20 capsule 11/07/22 [Rx] amLODIPine [Norvasc] 10 mg PO DAILY #30 tab 11/07/22 [Rx] cloNIDine HCL [Catapres] 0.2 mg PO TID PRN #30 tab 11/07/22 [Rx] Follow up Appointment(s)/Referral(s): Rian Stapleton DO [Doctor of Osteopathic Medicine] - 2 Weeks Odell Zee MD [Primary Care Provider] - 1-2 days Patient Instructions/Handouts: Proximal Humerus Fracture (DC) Activity/Diet/Wound Care/Special Instructions: Orthopedic Discharge Instructions: 1. Maintain left upper extremity in sling. May perform free ROM exercises of left wrist/elbow. Ice as needed 2. Nonweightbearing left upper extremity. 3. Ice and elevate when necessary. Do not exceed 20 minutes per hour with ice pack. 4. Pain meds per prescription 5. Anticoagulants per prescription. 6. Pain medication has potential to cause constipation. Increase oral fluid and fiber intake. Contact primary care provider if you have not had a bowel movement within 48 hours after discharge. 7. No anti-inflammatory medication until discussed at first follow up visit in office, this including Motrin, Aleve, Mobic, Diclofenac, Aspirin. 8. Follow up in office in [address] Rian Stapleton. 9. Follow up with your primary care doctor 7-10 days after discharge. 10. Contact [facility] with any questions, . Discharge Disposition: TRANSFER TO SNF/ECF
[2022-11-07 14:15] VITALS: BP 119/71; PULSE 68; RESP 16; TEMP 98.3
== END 2022-11-06 17:50 ==
LOC: EC 10:16 → 6NMEDSUR 14:04 → INTOOBSV 11-06 10:22 → OBSVTOIN 11-06 10:22 → 4SSUR 11-06 17:27 → UNDODISIN 11-07 17:50
PROVIDERS: ADMIT Orthopaedic Surgery Hand Surgery; ATTEND Orthopaedic Surgery Hand Surgery
DX: S42.212A Unspecified displaced fracture of surgical neck of left humerus, initial encounter for closed fracture (principal); E83.52 Hypercalcemia; I10 Essential (primary) hypertension; R53.1 Weakness; E87.1 Hypo-osmolality and hyponatremia; D72.829 Elevated white blood cell count, unspecified; R00.1 Bradycardia, unspecified; F03.90 Unspecified dementia, unspecified severity, without behavioral disturbance, psychotic disturbance, mood disturbance, and anxiety; F17.200 Nicotine dependence, unspecified, uncomplicated; W19.XXXA Unspecified fall, initial encounter; Y92.009 Unspecified place in unspecified non-institutional (private) residence as the place of occurrence of the external cause; Z96.643 Presence of artificial hip joint, bilateral
CPT/HCPCS: 96361; 96360; 99285; 36415; 94760; 93005; 97530; 97162; 97166; 80053; 80048; 83735 ×2; 84100; 85025 ×2; 81001; 73030; 71045; G0378 ×3; 87635